=== PATIENT | female | born 1985 | race Caucasian/White ===

== ENCOUNTER → 2017-02-07 | Outpatient (CLI) | payer MEDICARE, OTHER, MEDICAID, BC | LOC: BHSO 10:12 | DX: F06.32 Mood disorder due to known physiological condition with major depressive-like episode (principal) | CPT/HCPCS: 90791-AI ==

== ENCOUNTER → 2023-09-01 | Outpatient (CLI) | payer MEDICARE, OTHER, MEDICAID | LOC: MC.RAD 09:03 | DX: Z12.31 Encounter for screening mammogram for malignant neoplasm of breast (principal) ==